=== PATIENT | male | born 1980 | race Caucasian/White ===

== ENCOUNTER 2019-04-18 11:16 | Emergency (ER) | payer SELFPAY | END 2019-04-18 11:43 | disposition left against medical advice (07) | DX: Z53.21 Procedure and treatment not carried out due to patient leaving prior to being seen by health care provider (principal) | CPT/HCPCS: 99199 ==

== ENCOUNTER 2019-04-18 13:02 | Emergency (ER) | payer OTHER, SELFPAY ==
[2019-04-18 13:18] VITALS: BP 136/88; PULSE 79; RESP 16; TEMP 36.6; O2SAT 99
--- NOTE | 2019-04-18 13:36 | ED.EAR ---
HPI - Ear Problem General Chief complaint: Ear Stated complaint: R/ear clogged Time Seen by Provider: 04/18/19 13:36 Source: patient and RN notes reviewed Mode of arrival: ambulatory Limitations: no limitations History of Present Illness HPI Narrative: This is a 38 years old male presented office for evaluation of right ear clogged since last night. He attempted to remove it himself with a Q-tip which he think it make it worse. He is otherwise feeling well, denies stuffy nose, cough, or difficulty breathing. Related Data Allergies Allergy/AdvReac Type Severity Reaction Status Date / Time morphine Allergy Intermediate Rash Unverified 07/23/18 10:32 Review of Systems Review of Systems: Narrative: CONSTITUTIONAL: Denies fever ENT: Denies rhinorrhea, congestion, sore throat or ears pain. Reprots can't hear from right ear CARDIOVASCULAR: Denies chest pain. RESPIRATORY: Denies dyspnea, wheezing, cough GASTROINTESTINAL: Denies abdominal pain, nausea, vomiting SKIN: Denies rash MUSCULOSKELETAL: Denies acute back pain NEUROLOGIC: Denies lightheaded PMFSH Social History Social History Alcohol intake: current Comments At time of signature, I agree with nursing past medical, surgical, social and family history. There is no relevant family history pertinent to the presenting complaint. Exam Narrative: Exam Narrative: GENERAL: This is a well-nourished, well-developed patient, in no apparent distress. EARS: External ears normal, auditory canals clear and without drainage, bilateral TMs noted cerumen impaction. Hearing grossly intact. CARDIOVASCULAR: Regular rate and rhythm without murmurs, gallops, or rubs. RESPIRATORY: Clear to auscultation. Breath sounds equal bilaterally. No wheezes, rales, or rhonchi. GASTROINTESTINAL: Abdomen soft, non-tender, nondistended. Bowel sounds are active. No hepato-splenomegaly, or palpable masses. No guarding. SKIN: warm, intact with no suspicious lesions or rash, good texture and turgor. NEURO: awake, alert, and oriented to person, place and time. There were no obvious focal neurologic abnormalities. Steady gait [place] Coma Scale Eye Opening: Spontaneous 4 Óscar Coma Scale Motor: Obeys Commands 6 Óscar Coma Scale Verbal: Oriented 5 Course Vital Signs Vital signs: Vital Signs Temperature 97.8 F 04/18/19 13:18 Pulse Rate 79 04/18/19 13:18 Respiratory Rate 16 04/18/19 13:18 Blood Pressure 136/88 04/18/19 13:18 Pulse Oximetry 99 04/18/19 13:18 Temperature 97.8 F 04/18/19 13:18 Pulse Rate 79 04/18/19 13:18 Respiratory Rate 16 04/18/19 13:18 Blood Pressure 136/88 04/18/19 13:18 Pulse Oximetry 99 04/18/19 13:18 Procedures Ear Wax Removal Both Ears: Ear Wax Removal Date: 04/18/19 Ear Wax Removal Time: 13:42 Results: Re-examined: cerumen removed completely TM Examination: TM(s) intact, normal appearance Ear Canal Exam: atraumatic Patient Tolerated Procedure: well Complications: no problems Technique: ear canal irrigated Medical Decision Making MDM Narrative Medical decision making narrative: Discharge instructions reviewed with patient, as well as provided in writing per nursing staff. The instructions also include specific and strict return/GO TO THE ER as well as f/u information. All questions have been answered, and the patient deny any further questions with discharge and discharge plan. Differential Diagnosis Differential Diagnosis: foreign body, otitis externa, otitis media Vital Signs Vital Signs: Vital Signs Temperature 97.8 F 04/18/19 13:18 Pulse Rate 79 04/18/19 13:18 Respiratory Rate 16 04/18/19 13:18 Blood Pressure 136/88 04/18/19 13:18 Pulse Oximetry 99 04/18/19 13:18 Temperature 97.8 F 04/18/19 13:18 Pulse Rate 79 04/18/19 13:18 Respiratory Rate 16 04/18/19 13:18 Blood Pressure 136/88 0
== END 2019-04-18 13:57 | disposition home or self-care (01) ==
PROVIDERS: Emergency Provider Nurse Practitioner
DX: H61.23 Impacted cerumen, bilateral (principal); K50.90 Crohn's disease, unspecified, without complications
CPT/HCPCS: 69209; 99212; G0463

== ENCOUNTER 2020-02-10 13:58 | Emergency (ER) | payer OTHER, SELFPAY ==
--- NOTE | ~2020-02-10 | CT_ITS ---
EXAMINATION: CT abdomen pelvis w con DATE: 02/10/2020 14:54 INDICATION: Left lower quadrant abdominal pain. Nausea and vomiting. TECHNIQUE: Computed tomography (CT) of the abdomen and pelvis was performed with 100 mL Omnipaque 350 intravenous contrast. Automated exposure control and iterative reconstruction technique were employe d. The dose-length product was 496.28 mGy-cm. COMPARISON: CT abdomen and pelvis 05/15/2013 FINDINGS: The visualized portions of the lung bases demonstrate minimal atelectasis. No pleural effus ion. The heart size is normal. No pericardial effusion. The liver, gallbladder, spleen, pancreas, adr enal glands, and right kidney are normal. There is a 12 mm cyst in left kidney. There is a 1 mm stone in left kidney. There is wall thickening of sigmoid colon with surrounding fat stranding centered at a diverticulum, consistent with diverticulitis. The appendix is normal. The terminal ileum is normal . There are no pathologically enlarged lymph nodes. There is no free intraperitoneal fluid. There is mild thoracolumbar spondylosis. IMPRESSION: 1. Acute sigmoid diverticulitis. No perforation or drainable abscess. Reviewed, dictated and finalized at location A. PRINTER
[2020-02-10 14:03] VITALS: BP 131/98; PULSE 107; RESP 16; TEMP 36.1; O2SAT 100
[2020-02-10 14:46] LABS: Basophils Percent Auto 0.2 % (0.2-1.2); Eosinophils Percent Auto 0.1 % (0-4.4); Hematocrit 50.4 % (42.0-52.0); Hemoglobin 17.5 g/dL (14.0-18.0); Immature Granulocyte Absolute 0.09 K/mm3 (0.00-0.031); Immature Granulocyte Percent A 0.5 % (0-0.5); Lymphocytes Absolute Auto 1.53 K/mm3 (0.9-3.2); Lymphocytes Percent Auto 9.1 % (18.3-44.2); Mean Corpuscular HGB Conc 34.7 g/dl (32-36); Mean Corpuscular Hemoglobin 30.9 pg (26-34); Monocytes Absolute Auto 0.9 K/mm3 (0.1-0.6); Monocytes Percent Auto 5.5 % (2.6-8.5); Neutrophils Absolute Auto 14.3 K/mm3 (1.3-6.7); Neutrophils Percent Auto 84.6 % (45.5-73.1); Platelet Count Result 301 k/mm3 (150-375); Red Blood Count 5.66 M/mm3 (4.6-6.20); Red Cell Distribution Width 13.7 % (11.5-14.5); White Blood Count 16.9 K/mm3 (4.5-10.0)
[2020-02-10 14:52] LABS: Estimated CRCL calculation 128 ml/min; Estimated Glomerular Filt Rate > 60
[2020-02-10 14:52] LABS: Add Urine Microscopic? YES; Appearance Urine Clear (Clear); Bilirubin Urine 1+ (Negative); Blood Urine 1+ (Negative); Color Urine Amber (Yellow); Glucose Urine UA Negative (Negative); Ketones Urine 2+ mg/dL (Negative); Leukocyte Esterase Ur Negative LEU/UL (Negative); Mucus Urine Heavy /lpf; Nitrate Urine Negative (Negative); Protein Urine 2+ mg/dL (Negative); WBC Urine 0-3 /hpf
[2020-02-10 14:57] LABS: Specific Grav Ur 1.034 (1.001-1.035)
[2020-02-10 15:01] LABS: Alanine Aminotransferase 43 U/L (4-50); Albumin Level 4.3 g/dL (3.5-5.1); Alkaline Phosphatase 141 U/L (38-126); Anion Gap 11 mmol/L (8-16); Aspartate Amino Transferase 35 U/L (17-59); Bilirubin,Total 1.2 mg/dL (0.2-1.3); Blood Urea Nitrogen 13 mg/dL (9-20); Calcium 9.4 mg/dL (8.4-10.2); Carbon Dioxide 28 mmol/L (22-30); Chloride 97 mmol/L (98-107); Estimated CRCL calculation 128 ml/min; Estimated Glomerular Filt Rate > 60; Glucose 123 mg/dL (75-110); Lipase 24 U/L (23-300); Potassium 3.3 mmol/L (3.4-5.0); Sodium 136 mmol/L (137-145)
[2020-02-10] MEDS: fentaNYL CITRATE INJ (*CRX) 100 MCG/2 ML VIAL 50 MCG IV PUSH (15:08)
[2020-02-10] MEDS: SODIUM CHLORIDE 0.9% IV 1,000 ML 999 ML IV CONT (15:09)
--- NOTE | 2020-02-10 15:49 | ED.ABDPAIN ---
HPI - Abdominal Pain General Chief Complaint: Abdominal Pain Stated Complaint: abd pain Time Seen by Provider: 02/10/20 13:59 History of Present Illness HPI narrative: Patient is a 39-year-old male who presents ER with lower abdominal pain. Ongoing for 2 to 3 days. Midline left lower quadrant. Associated with scant blood in stool. No diarrhea or fever. Has history of Crohn's disease and also history of diverticulitis. No fevers or chills or sweats. No aggravating or alleviating factors. Related Data Allergies Allergy/AdvReac Type Severity Reaction Status Date / Time morphine Allergy Intermediate Rash Verified 02/10/20 15:44 Review of Systems Review of Systems: All systems reviewed & are unremarkable except as noted in HPI and below Constitutional: Constitutional: Denies chills, Denies fever(s) and Denies weakness ENT: Denies nasal congestion and Denies sore throat Cardiovascular: Cardiovascular: Denies chest pain and Denies radiating jaw, neck or arm pain Gastrointestinal: Gastrointestinal: Reports abdominal pain, Denies diarrhea, Denies nausea and Denies vomiting PMFSH Past Medical History Medical History (Updated 02/10/20 @ 15:54 by Von Granados MD) Crohn's disease Diverticulitis Surgical History Surgical History (Updated 02/10/20 @ 15:51 by Von Granados MD) Hx of abdominal surgery Fistula repair Social History Social History (Updated 02/10/20 @ 15:52 by Von Granados MD) Smoking status: Current every day smoker Alcohol intake: current Exam Narrative: Exam Narrative: GENERAL: Well-appearing, well-nourished, and in no acute distress. HEAD: Normocephalic, atraumatic. CHEST: Clear to auscultation. No respiratory distress. HEART: Tachycardic and regular. Normal peripheral pulses. ABDOMEN: Soft, tender palpation left lower quadrant without guarding, nondistended. EXTREMITIES: Normal range of motion. No edema. SKIN: Warm, dry, no rash. NEURO: Alert and oriented x3. PSYCH: Normal mood and affect. Course Course Emergency Course: Patient informed of results. Discharge home. Vital Signs Vital signs: Vital Signs Temperature 97.0 F L 02/10/20 14:03 Pulse Rate 107 H 02/10/20 14:03 Respiratory Rate 16 02/10/20 14:03 Blood Pressure 131/98 H 02/10/20 14:03 Pulse Oximetry 100 02/10/20 14:03 Temperature 97.0 F L 02/10/20 14:03 Pulse Rate 107 H 02/10/20 14:03 Respiratory Rate 16 02/10/20 14:03 Blood Pressure 131/98 H 02/10/20 14:03 Pulse Oximetry 100 02/10/20 14:03 MDM - Abdominal Pain Lab Data Result diagrams: 02/10/20 14:37 02/10/20 14:49 Labs: Lab Results 02/10/20 02/10/20 02/10/20 Range/Units 14:37 14:37 14:37 WBC 16.9 H (4.5-10.0) K/mm3 RBC 5.66 (4.6-6.20) M/mm3 Hgb 17.5 (14.0-18.0) g/dL Hct 50.4 (42.0-52.0) % MCV 89.0 (80-100) fl MCH 30.9 (26-34) pg MCHC 34.7 (32-36) g/dl RDW 13.7 (11.5-14.5) % Plt Count 301 (150-375) k/mm3 MPV 10.0 (7.4-10.4) fl Immature Gran % (Auto) 0.5 (0-0.5) % Neut % (Auto) 84.6 H (45.5-73.1) % Lymph % (Auto) 9.1 L (18.3-44.2) % Dickenson % (Auto) 5.5 (2.6-8.5) % Eos % (Auto) 0.1 (0-4.4) % Baso % (Auto) 0.2 (0.2-1.2) % Lymph # (Auto) 1.53 (0.9-3.2) K/mm3 Dickenson # (Auto) 0.9 H (0.1-0.6) K/mm3 Eos # (Auto) 0.0 (0-0.3) K/mm3 Baso # (Auto) 0.0 (0.0-0.1) K/mm3 Abs Immat Gran (auto) 0.09 H (0.00-0.031) K/mm3 Absolute Neuts (auto) 14.3 H (1.3-6.7) K/mm3 Absolute Nucleated RBC 0.0 (0.0-0.012) K/mm3 Nucleated RBC % 0.0 (0.0-0.2) % Sodium 136 L (137-145) mmol/L Potassium 3.3 L (3.4-5.0) mmol/L Chloride 97 L (98-107) mmol/L Carbon Dioxide 28 (22-30) mmol/L Anion Gap 11 (8-16) mmol/L BUN 13 (9-20) mg/dL Creatinine 0.80 (0.7-1.3) mg/dL Estim Creat Clear Calc 128 ml/min Estimated GFR > 60 (59 - ) Glucose 123 H (75-110) mg/dL C
[2020-02-10] MEDS: ONDANSETRON INJ 4 MG/2 ML VIAL (16:16)
--- NOTE | 2020-02-10 16:16 | PC.NURSE ---
eze zofran [address] mittal
[2020-02-10 16:18] VITALS: BP 142/78; PULSE 84; RESP 16; O2SAT 99
== END 2020-02-10 16:52 | disposition home or self-care (01) ==
PROVIDERS: Emergency Provider Emergency Medicine
DX: K57.32 Diverticulitis of large intestine without perforation or abscess without bleeding (principal); K50.90 Crohn's disease, unspecified, without complications; F17.200 Nicotine dependence, unspecified, uncomplicated
CPT/HCPCS: 36415; 74177; 80053; 81001; 83690; 85025; 96361; 96374; 96375; 99284; J2405; J3010; J7030; Q9967

== ENCOUNTER 2020-03-13 10:28 | Emergency (ER) | payer OTHER, SELFPAY ==
--- NOTE | 2020-03-13 10:32 | ED.SKABFB ---
HPI - Skin/Abscess/Foreign Bdy General Chief complaint: Extremity Injury, Lower Stated complaint: Blister on foot Time Seen by Provider: 03/13/20 10:42 Source: patient and RN notes reviewed Mode of arrival: ambulatory Limitations: no limitations History of Present Illness HPI narrative: 39-year-old male presents concern for a blister on his right foot with surrounding redness and pain, reports symptoms started last night. Denies any injury, trauma to the foot. Denies any streaking, fever, malaise. MD complaint: other (Foot pain) Related Data Allergies Allergy/AdvReac Type Severity Reaction Status Date / Time morphine Allergy Intermediate Rash Verified 03/13/20 10:36 Review of Systems Review of Systems: Narrative: CONSTITUTIONAL: Denies malaise, chills, sweats, or fever. CARDIOVASCULAR: Denies chest pain, palpitations, or edema. RESPIRATORY: Denies cough or dyspnea. SKIN: Reports blister area between fourth and fifth digits of the right foot with surrounding redness, tenderness MUSCULOSKELETAL: Denies muscle skeletal pain myalgia. NEUROLOGIC: Denies numbness, weakness All systems reviewed & are unremarkable except as noted in HPI and below PMFSH Past Medical History Medical History (Updated 03/13/20 @ 10:49 by Ingrid Vazquez NP) Crohn's disease Diverticulitis Surgical History Surgical History (Updated 02/10/20 @ 15:51 by Von Granados MD) Hx of abdominal surgery Fistula repair Social History Social History (Updated 02/10/20 @ 15:52 by Von Granados MD) Smoking status: Current every day smoker Alcohol intake: current Gender identity (if verbalized by the patient): Male Comments At time of signature, agree with nursing past medical, surgical, social and family history. There is no relevant family history pertinent to the presenting complaint Exam Narrative: Exam Narrative: GENERAL: Well-appearing, well-nourished, and in no acute distress. HEAD: Normocephalic, atraumatic. EYES: PERRLA, conjunctivae clear NECK: Supple. CHEST: Speaks in full sentences. No respiratory distress. HEART: Regular rate and rhythm. Normal and equal peripheral pulses. EXTREMITIES: Right foot and digits have normal strength and sensation, normal range of motion. No edema or ecchymosis. 5/5 strength with ankle and digit flexion and extension. Normal sensation with sensitivity to light touch and pain. No point tenderness. No skin tenting, no devitalized tissue or atrophy, no trophic changes, no obvious deformity, alignment normal, nearby joints and structures intact. Distal pulses palpable and equal bilaterally, skin warm, dry, pink. Capillary refill less than 3 seconds. SKIN: Warm, dry. 1 cm diameter area of redness, mild elevation, tenderness noted between digits 4 and 5 surrounded by 5 cm of erythema and warmth to the dorsal aspect of the foot beneath digits 4 and 5 NEURO: Alert and oriented x3. PSYCH: Normal mood and affect Course Course Emergency Course: Patient is aware of diagnosis, understands and agrees to treatment plan. Anticipatory guidance given. Patient agrees to follow-up as directed and is aware of reasons to seek care at the emergency department. Portions of this record may have been created with voice recognition software Vital Signs Vital signs: Vital Signs Temperature 96.3 F L 03/13/20 10:42 Pulse Rate 92 03/13/20 10:42 Respiratory Rate 16 03/13/20 10:42 Blood Pressure 147/94 H 03/13/20 10:42 Pulse Oximetry 100 03/13/20 10:42 Temperature 96.3 F L 03/13/20 10:42 Pulse Rate 92 03/13/20 10:42 Respiratory Rate 16 03/13/20 10:42 Blood Pressure 147/94 H 03/13/20 10:42 Pulse Oximetry 100 03/13/20 10:42 Reviewed. MDM - Skin/Abscess/Foreign Bdy MDM Narrative Medical decision making narrative: Exam findings show no acute concerns or changes; patient is non-toxic appearing and is in no distress. Patient is appropriate for outpatient treatment and follow-up. Differential D
[2020-03-13 10:42] VITALS: BP 147/94; PULSE 92; RESP 16; TEMP 35.7; O2SAT 100
== END 2020-03-13 10:55 | disposition home or self-care (01) ==
PROVIDERS: Emergency Provider Nurse Practitioner
DX: L03.115 Cellulitis of right lower limb (principal); K50.90 Crohn's disease, unspecified, without complications
CPT/HCPCS: 99213; G0463

== ENCOUNTER 2020-03-15 08:01 | Emergency (ER) | payer OTHER, SELFPAY ==
--- NOTE | 2020-03-15 08:09 | ED.GENADULT ---
HPI - General Adult General Chief complaint: Wound/Laceration Stated complaint: CELLULITIS R FOOT Time Seen by Provider: 03/15/20 08:06 Source: patient Mode of arrival: ambulatory Limitations: no limitations History of Present Illness HPI narrative: A 39-year-old male comes into the emergency department today with complaints of right foot pain. Patient states that he was seen at an urgent care was diagnosed with cellulitis of the foot and was discharged home with prescription for cephalexin. Patient states that he has been a day or so and that the redness seems to be getting better and the pain is increasing. Patient does endorse a small amount of purulent drainage coming from the wound. He denies any fevers or chills or any pain or symptoms elsewhere. Patient states that he is not a diabetic. Related Data Allergies Allergy/AdvReac Type Severity Reaction Status Date / Time morphine Allergy Intermediate Rash Verified 03/13/20 10:36 Review of Systems Review of Systems: Narrative: CONSTITUTIONAL: Denies fever, chills, or sweats. EYES: Denies visual changes, redness, or discharge. ENT: Denies rhinorrhea, congestion, sore throat, or otalgia. CARDIOVASCULAR: Denies chest pain, palpitations, or edema. RESPIRATORY: Denies cough or dyspnea. GASTROINTESTINAL: Denies abdominal pain, nausea, vomiting, or diarrhea. GENITOURINARY: Denies dysuria or hematuria. SKIN: Denies rash or itching. MUSCULOSKELETAL: Denies back pain, joint pain, or myalgia. Pain in the right foot NEUROLOGIC: Denies headache, numbness, dizziness, or weakness. PSYCHIATRIC: Denies anxiety or depression. [facility] Past Medical History Medical History Crohn's disease Diverticulitis Surgical History Surgical History Hx of abdominal surgery Fistula repair Social History Social History Smoking status: Current every day smoker Alcohol intake: current Gender identity (if verbalized by the patient): Male Exam Narrative: Exam Narrative: My GENERAL: Well-appearing, well-nourished, and in no acute distress. HEAD: Normocephalic, atraumatic. EYES: PERRLA and EOMI. ENT: Nares clear, no rhinorrhea or epistaxis. Mucous membranes moist. Oropharynx without tonsillar hypertrophy exudate or other lesions. Bilateral TMs pearly desai nonbulging NECK: Supple. No adenopathy or masses. No carotid bruits or JVD CHEST: Clear to auscultation. No respiratory distress. No wheezes rales or rhonchi HEART: Regular rate and rhythm. No murmur heard. Normal peripheral pulses. ABDOMEN: Soft, nontender, nondistended, normal active bowel sounds. EXTREMITIES: Normal range of motion. No edema. Erythema and tenderness in the right foot particularly at the fourth and fifth metatarsal phalangeal joints. SKIN: Warm, dry, no rash. NEURO: No focal deficits. Alert and oriented x3. PSYCH: Normal mood and affect. Course Reevaluation(s) Reevaluation #1: Patient was feeling somewhat better. He was given [place] for pain and had Bactrim added onto his regimen. Explained to the patient that this will be his plan for discharge. He is recommended to follow-up with primary care physician. Time: 09:52 Vital Signs Vital signs: Vital Signs Temperature 36.3 C L 03/15/20 08:13 Pulse Rate 82 03/15/20 08:13 Respiratory Rate 18 03/15/20 08:13 Blood Pressure 151/92 H 03/15/20 08:13 Pulse Oximetry 100 03/15/20 08:13 Temperature 36.3 C L 03/15/20 08:13 Pulse Rate 82 03/15/20 08:13 Respiratory Rate 18 03/15/20 08:13 Blood Pressure 151/92 H 03/15/20 08:13 Pulse Oximetry 100 03/15/20 08:13 Medical Decision Making MDM Narrative Medical decision making narrative: In brief this 39-year-old male, nondiabetic, presented to the emergency department with complaints of pain in his right foot. The foot was examined by myself. I terrie
[2020-03-15 08:13] VITALS: BP 151/92; PULSE 82; RESP 18; TEMP 36.3; O2SAT 100
[2020-03-15] MEDS: HYDROcodone/acetaminophen (*CRX) 5-325 MG TABLET 1 TAB PO (08:31)
[2020-03-15 08:34] LABS: Add Urine Microscopic? NO; Appearance Urine Clear (Clear); Bilirubin Urine Negative (Negative); Blood Urine Negative (Negative); Color Urine Yellow (Yellow); Glucose Urine UA Negative (Negative); Ketones Urine Negative (Negative); Leukocyte Esterase Ur Negative LEU/UL (Negative); Nitrate Urine Negative (Negative); Protein Urine Negative (Negative); Specific Grav Ur 1.015 (1.001-1.035); Urobilinogen Urine Negative mg/dL (<2.0)
[2020-03-15 08:47] LABS: Alanine Aminotransferase 19 U/L (4-50); Albumin Level 4.1 g/dL (3.5-5.1); Alkaline Phosphatase 78 U/L (38-126); Anion Gap 10 mmol/L (8-16); Aspartate Amino Transferase 27 U/L (17-59); Bilirubin,Total 0.5 mg/dL (0.2-1.3); Blood Urea Nitrogen 10 mg/dL (9-20); Calcium 9.1 mg/dL (8.4-10.2); Carbon Dioxide 22 mmol/L (22-30); Chloride 110 mmol/L (98-107); Estimated CRCL calculation 131 ml/min; Estimated Glomerular Filt Rate > 60; Glucose 101 mg/dL (75-110); Potassium 4.1 mmol/L (3.4-5.0); Sodium 142 mmol/L (137-145)
[2020-03-15 08:55] LABS: Basophils Absolute Auto 0.1 K/mm3 (0.0-0.1); Basophils Percent Auto 0.9 % (0.2-1.2); Eosinophils Absolute Auto 0.4 K/mm3 (0-0.3); Eosinophils Percent Auto 4.5 % (0-4.4); Hematocrit 48.3 % (42.0-52.0); Hemoglobin 15.8 g/dL (14.0-18.0); Immature Granulocyte Absolute 0.03 K/mm3 (0.00-0.031); Immature Granulocyte Percent A 0.3 % (0-0.5); Lymphocytes Absolute Auto 2.62 K/mm3 (0.9-3.2); Lymphocytes Percent Auto 28.4 % (18.3-44.2); Mean Corpuscular HGB Conc 32.7 g/dl (32-36); Mean Corpuscular Volume 94.7 fl (80-100); Mean Platelet Volume 9.4 fl (7.4-10.4); Monocytes Absolute Auto 0.5 K/mm3 (0.1-0.6); Monocytes Percent Auto 5.4 % (2.6-8.5); Neutrophils Absolute Auto 5.6 K/mm3 (1.3-6.7); Neutrophils Percent Auto 60.5 % (45.5-73.1); Platelet Count Result 315 k/mm3 (150-375); Red Cell Distribution Width 14.5 % (11.5-14.5); White Blood Count 9.2 K/mm3 (4.5-10.0)
== END 2020-03-15 10:52 | disposition home or self-care (01) ==
PROVIDERS: Emergency Provider Emergency Medicine; Family Provider Internal Medicine
DX: L03.115 Cellulitis of right lower limb (principal); K50.90 Crohn's disease, unspecified, without complications; F17.200 Nicotine dependence, unspecified, uncomplicated
CPT/HCPCS: 36415; 80053; 81003; 85025; 99283; A9270

== ENCOUNTER 2021-04-12 07:03 | Emergency (ER) | payer OTHER, SELFPAY ==
[2021-04-12 07:10] VITALS: BP 150/99; PULSE 91; RESP 16; TEMP 36.2; O2SAT 100
--- NOTE | 2021-04-12 07:17 | ED.GENADULT ---
HPI - General Adult General Chief complaint: Wound/Laceration Stated complaint: left side of face is swollen Time Seen by Provider: 04/12/21 07:09 Source: RN notes reviewed History of Present Illness HPI narrative: Patient presents emergency department from home for left sided lower lip swelling. Patient states that yesterday he had a pimple in this area that he popped he states that then throughout the rest of the evening and today has had increased swelling and pain in the left lower lip he states that he has had no more active drainage from the wound states area is tender to palpation with redness denies any fevers or chills swelling of the tongue shortness of breath or any other symptoms Related Data Allergies Allergy/AdvReac Type Severity Reaction Status Date / Time morphine Allergy Intermediate Rash Verified 04/12/21 07:22 Review of Systems Review of Systems: Gen.: Denies fevers or chills ENT: Denies congestion Respiratory: Denies shortness of breath or cough CV: Denies chest pain GI: Denies abdominal pain nausea, emesis Musculoskeletal: Denies neck pain Neuro: Denies headache Skin: See HPI Except as documented, all other systems reviewed and negative PMFSH Past Medical History Medical History Crohn's disease Diverticulitis Surgical History Surgical History Hx of abdominal surgery Fistula repair Social History Social History Smoking status: Current every day smoker Alcohol intake: current Gender identity (if verbalized by the patient): Male Exam Narrative: APPEARANCE: No acute distress, nontoxic, resting in bed EYES: EOMI HEENT: Normocephalic, atraumatic, nares patent, mucosa moist airway patent tolerating own secretions uvula midline, there is no swelling of the upper lip the left lower lip swelling that does not cross the midline Lateral cheek there is mild overlying erythema and mild fluctuance RESPIRATORY: No respiratory distress MUSCULOSKELETAl: Moves all extremities. NEURO: Awake and alert. Following commands, speech normal, no focal deficits SKIN:: Warm, dry. RN edema and swelling of left lower lip PSYCHIATRIC: Normal affect/mood, Course Course Emergency Course: Discussed Dr. Manzano presentation work-up agrees with plan for follow-up as outpatient request patient started on clindamycin Discussed with patient results of workup and diagnosis. Discussed need for follow-up with primary care, proper use of medication, and reasons to return to the emergency department. Patient understands and agrees to current treatment plan Vital Signs Vital signs: Vital Signs Temperature 97.1 F L 04/12/21 07:10 Pulse Rate 91 04/12/21 07:10 Respiratory Rate 16 04/12/21 07:10 Blood Pressure 150/99 H 04/12/21 07:10 Pulse Oximetry 100 04/12/21 07:10 Temperature 97.1 F L 04/12/21 07:10 Pulse Rate 91 04/12/21 07:10 Respiratory Rate 16 04/12/21 07:10 Blood Pressure 150/99 H 04/12/21 07:10 Pulse Oximetry 100 04/12/21 07:10 Procedures Abscess I/D face: Abcess I&D Additional Comments: Verbal consent was obtained prior to procedure. Scab over the left lower lip was removed using forceps at that time express approximately 1 cc of purulent material from the wound was sent for culture following this dressing was placed patient tolerated procedure well Medical Decision Making Vital Signs Vital Signs: Vital Signs Temperature 97.1 F L 04/12/21 07:10 Pulse Rate 91 04/12/21 07:10 Respiratory Rate 16 04/12/21 07:10 Blood Pressure 150/99 H 04/12/21 07:10 Pulse Oximetry 100 04/12/21 07:10 Temperature 97.1 F L 04/12/21 07:10 Pulse Rate 91 04/12/21 07:10 Respiratory Rate 16 04/12/21 07:10 Blood Pressure 150/99 H 04/12/21 07:10 Pulse Oximetry 100 04/12/21 07:10 Discharge Plan Disch
[2021-04-12] MEDS: CLINDAMYCIN HCL 150 MG CAP 300 MG PO (07:43)
[2021-04-12 08:30] VITALS: BP 148/104; PULSE 72; RESP 16; O2SAT 98
== END 2021-04-12 08:30 | disposition home or self-care (01) ==
PROVIDERS: Emergency Provider Emergency Medicine
DX: L02.01 Cutaneous abscess of face (principal); K50.90 Crohn's disease, unspecified, without complications; F17.210 Nicotine dependence, cigarettes, uncomplicated
CPT/HCPCS: 87070; 87075; 87147; 87186; 87205; 99283; A9270

== ENCOUNTER 2021-05-23 11:32 | Emergency (ER) | payer OTHER, SELFPAY ==
--- NOTE | 2021-05-23 11:39 | ED.ABDPAIN ---
HPI - Abdominal Pain General Chief Complaint: Abdominal Pain Stated Complaint: abd pain Time Seen by Provider: 05/23/21 11:45 Source: patient, RN notes reviewed and old records reviewed Mode of arrival: ambulatory Limitations: no limitations History of Present Illness HPI narrative: 40-year-old male presents to the [facility] with complaints of left-sided abdominal pain that feels very similar to his outbreak of diverticulitis a couple of years ago. Had a bowel movement prior to arrival. No nausea or vomiting. States that he wants to follow-up with a GI doctor but will not have a insurance for 2 more months. States his flareup started 2 days ago and he started drinking clear fluids. Denies any chest pain or shortness of breath. No fevers. Patient appears nontoxic. MD elicited complaint: abdominal pain Related Data Allergies Allergy/AdvReac Type Severity Reaction Status Date / Time morphine Allergy Intermediate Rash Verified 04/12/21 07:22 Review of Systems Review of Systems: All systems reviewed & are unremarkable except as noted in HPI and below Constitutional: Constitutional: Reports no additional constitutional complaints, Denies body ache(s), Denies chills and Denies fever(s) Eyes: Eyes: Reports no additional eye complaints ENT: Reports system reviewed and no additional complaints, except as documented Cardiovascular: Cardiovascular: Reports no additional cardiovascular complaints, Denies chest pain and Denies dyspnea Respiratory: Respiratory: Reports no additional respiratory complaints, Denies cough and Denies dyspnea Gastrointestinal: Gastrointestinal: Reports as per HPI, Reports abdominal pain (Left sided, left lower), Denies bloating, Denies constipation, Denies diarrhea, Denies nausea and Denies vomiting Genitourinary: Genitourinary: Reports no additional male genitourinary complaints, Denies hematuria, Denies oliguria, Denies dysuria, Denies testicular pain, Denies urinary frequency and Denies urinary incontinence Musculoskeletal: Musculoskeletal: Reports no additional musculoskeletal complaints Integumentary/Breasts: Skin/Breast: Reports system reviewed and no additional complaints, except as docu Neurologic: Reports system reviewed and no additional complaints, except as documented Psychiatric: Psychiatric: Reports no additional psychiatric complaints Allergic/Immunologic: Allergic/Immunologic: Reports no additional allergic/immunologic complaints PMFSH Past Medical History Medical History Crohn's disease Diverticulitis Surgical History Surgical History Hx of abdominal surgery Fistula repair Social History Social History Smoking status: Current every day smoker Alcohol intake: current Gender identity (if verbalized by the patient): Male Comments At the time of my signature, I reviewed and agree with the nursing past medical, surgical, social, and family history. There is no relevant family history pertinent to the patient complaint. Exam Const: General: cooperative, healthy appearing, comfortable, no acute distress, well developed and alert Nutritional Appearance: well nourished Orientation/consciousness: patient oriented x3 Limitations: no limitations HENMT: Head: normal to inspection Ears: external ears normal Eyes: Pupils: Equal, round and reactive pupils present Neck: Neck: normal visual inspection, no lymphadenopathy and no meningeal signs Chest: Chest palpation & inspection: normal inspection of the chest Resp: Effort & Inspection: normal respiratory effort, able to speak in complete sentences and no use of accessory muscles Auscultation: clear to auscultation bilaterally Cardio: Rate: regular rate Rhythm: regular rhythm GI: GI Palp: Yes Soft to palpation, Yes Tenderness to palpation present (GI) (Left lower
[2021-05-23 11:45] VITALS: BP 146/97; PULSE 75; RESP 20; TEMP 36.3; O2SAT 100
== END 2021-05-23 12:07 | disposition home or self-care (01) ==
PROVIDERS: Emergency Provider Nurse Practitioner
DX: K57.92 Diverticulitis of intestine, part unspecified, without perforation or abscess without bleeding (principal); F17.200 Nicotine dependence, unspecified, uncomplicated; K50.90 Crohn's disease, unspecified, without complications
CPT/HCPCS: 99213; G0463

== ENCOUNTER 2021-06-20 06:56 | Emergency (ER) | payer OTHER, SELFPAY ==
[2021-06-20 07:00] VITALS: BP 140/102; PULSE 102; RESP 16; TEMP 36.9; O2SAT 98
--- NOTE | 2021-06-20 07:17 | ED.GENADULT ---
HPI - General Adult General Chief complaint: Skin/Abscess/Foreign Body Stated complaint: pimple on my buttcheek Time Seen by Provider: 06/20/21 06:59 Source: patient, RN notes reviewed and old records reviewed Limitations: no limitations History of Present Illness HPI narrative: 40-year-old male with history of previous abscesses and history of Crohn's/diverticulitis presenting to the emergency department for evaluation of an abscess on his left buttock. Patient states it started as a pimple approximately 2 weeks ago. Patient states that it has been draining spontaneously. Patient presented to the emergency department today for evaluation due to worsening pain. Patient states pain is worsened when sitting. Does have a prior history of a facial abscess and of a perirectal abscess. Patient denies any prior history of diabetes. Related Data Allergies Allergy/AdvReac Type Severity Reaction Status Date / Time morphine Allergy Intermediate Rash Verified 06/20/21 07:03 Review of Systems Review of Systems: CONSTITUTIONAL: Denies fever, chills, or sweats. EYES: Denies visual changes, redness, or discharge. ENT: Denies rhinorrhea, congestion, sore throat, or otalgia. CARDIOVASCULAR: Denies chest pain, palpitations, or edema. RESPIRATORY: Denies cough or dyspnea. GASTROINTESTINAL: Denies abdominal pain, nausea, vomiting, or diarrhea. GENITOURINARY: Denies dysuria or hematuria. SKIN: See HPI MUSCULOSKELETAL: Denies back pain, joint pain, or myalgia. NEUROLOGIC: Denies headache, numbness, or weakness. PSYCHIATRIC: Denies anxiety or depression. [facility] Past Medical History Medical History Crohn's disease Diverticulitis Surgical History Surgical History Hx of abdominal surgery Fistula repair Social History Social History Smoking status: Current every day smoker Alcohol intake: current Gender identity (if verbalized by the patient): Male Exam Narrative: APPEARANCE: Well appearing, no pain, no distress, well-nourished. HEAD: normocephalic, atraumatic. NECK: Supple. No adenopathy, no masses. RESPIRATORY: Airway patent, respirations nonlabored. Clear to auscultation bilaterally, no rales, rhonchi, wheezing. CARDIOVASCULAR: Regular rate and rhythm without murmurs rubs or gallops. ABDOMINAL: Soft, nontender, nondistended, normal bowel sounds NEURO: Alert. Cranial nerves II through XII intact. Good gait. Good coordination SKIN: 2 cm area of erythema on left buttock, not perirectal. Draining spontaneously, no fluctuance. Course Course Emergency Course: Abscess is not currently amenable to drainage. Patient will be started on clindamycin. Patient was also encouraged to have close follow-up with his primary care physician. Reasons to return to the emergency department were discussed with the patient. All questions concerns were addressed. Vital Signs Vital signs: Vital Signs Temperature 98.4 F 06/20/21 07:00 Pulse Rate 102 H 06/20/21 07:00 Respiratory Rate 16 06/20/21 07:00 Blood Pressure 140/102 H 06/20/21 07:00 Pulse Oximetry 98 06/20/21 07:00 Temperature 98.4 F 06/20/21 07:00 Pulse Rate 102 H 06/20/21 07:00 Respiratory Rate 16 06/20/21 07:00 Blood Pressure 140/102 H 06/20/21 07:00 Pulse Oximetry 98 06/20/21 07:00 Medical Decision Making Vital Signs Vital Signs: Vital Signs Temperature 98.4 F 06/20/21 07:00 Pulse Rate 102 H 06/20/21 07:00 Respiratory Rate 16 06/20/21 07:00 Blood Pressure 140/102 H 06/20/21 07:00 Pulse Oximetry 98 06/20/21 07:00 Temperature 98.4 F 06/20/21 07:00 Pulse Rate 102 H 06/20/21 07:00 Respiratory Rate 16 06/20/21 07:00 Blood Pressure 140/102 H 06/20/21 07:00 Pulse Oximetry 98 06/20/21 07:00 Discharge Plan Discharge Clinical Impression: Abscess of skin or
[2021-06-20] MEDS: CLINDAMYCIN HCL 150 MG CAP 300 MG PO (07:21)
== END 2021-06-20 07:45 | disposition home or self-care (01) ==
LOC: ANHED 07:35
PROVIDERS: Emergency Provider Emergency Medicine
DX: L02.31 Cutaneous abscess of buttock (principal); K50.90 Crohn's disease, unspecified, without complications; F17.200 Nicotine dependence, unspecified, uncomplicated
CPT/HCPCS: 99283; A9270

== ENCOUNTER 2021-06-22 08:14 | Emergency (ER) | payer OTHER, SELFPAY ==
[2021-06-22 08:21] VITALS: BP 153/98; PULSE 93; TEMP 36.4; O2SAT 100
--- NOTE | 2021-06-22 08:25 | ED.WOUNDLAC ---
HPI - Wound/Laceration General Chief Complaint: Wound/Laceration Stated Complaint: Sore on [place] Time Seen by Provider: 06/22/21 08:25 Source: patient Mode of arrival: ambulatory Limitations: no limitations History of Present Illness HPI narrative: 40-year-old male presents with pain buttock. Was seen in the ER several days ago for left buttock abscess. Was not I&D at that time. Patient has been taking clindamycin daily. States the abscess opened up on its own and is draining. Reports that pain is worse than it ever has been. Want someone to look at it to make sure that it is okay. Afebrile. Ambulatory with steady gait. All systems reviewed and negative except as noted above. Related Data Allergies Allergy/AdvReac Type Severity Reaction Status Date / Time morphine Allergy Intermediate Rash Verified 06/22/21 08:18 Review of Systems Review of Systems: CONSTITUTIONAL: Denies fever, chills, or sweats. EYES: Denies visual changes, redness, or discharge. ENT: Denies rhinorrhea, congestion, sore throat, or otalgia. CARDIOVASCULAR: Denies chest pain, palpitations, or edema. RESPIRATORY: Denies cough or dyspnea. GASTROINTESTINAL: Denies abdominal pain, nausea, vomiting, or diarrhea. GENITOURINARY: Denies dysuria or hematuria. SKIN: Denies rash or itching. Reports draining abscess to left buttock. MUSCULOSKELETAL: Denies back pain, joint pain, or myalgia. NEUROLOGIC: Denies headache, numbness, or weakness. PSYCHIATRIC: Denies anxiety or depression. All other systems reviewed are negative, except as documented in HPI. PMFSH Past Medical History Medical History Crohn's disease Diverticulitis Surgical History Surgical History Hx of abdominal surgery Fistula repair Social History Social History Smoking status: Current every day smoker Alcohol intake: current Gender identity (if verbalized by the patient): Male Comments At time of signature, agree with nursing past medical, surgical, social and family history. There is no relevant family history pertinent to the presenting complaint. Exam Narrative: GENERAL: This is a well-nourished, well-developed patient, in no apparent distress. HEAD: normocephalic, atraumatic. EYES: PERRL. Sclera clear/white. Vision is grossly intact. EARS: External ears normal NOSE: External nose normal NECK: Neck supple, non-tender without lymphadenopathy, masses or thyromegaly. CARDIOVASCULAR: Regular rate and rhythm without murmurs, gallops, or rubs. RESPIRATORY: Clear to auscultation. Breath sounds equal bilaterally. No wheezes, rales, or rhonchi. SKIN: warm, Dry, intact with no suspicious lesions or rash, good texture and turgor. Draining abscess noted to left buttock with erythema and tenderness on palpation. Only a small amount of drainage noted. Induration is approximately 8 cm x 6 cm. NEURO: awake, alert, and oriented to person, place and time. There were no obvious focal neurologic abnormalities. EXTREMITIES: Normal range of motion to all extremities. Course Course Level of Care: Express Care Visit Vital Signs Vital signs: Vital Signs Temperature 36.4 C 06/22/21 08:21 Pulse Rate 93 06/22/21 08:21 Blood Pressure 153/98 H 06/22/21 08:21 Pulse Oximetry 100 06/22/21 08:21 Temperature 36.4 C 06/22/21 08:21 Pulse Rate 93 06/22/21 08:21 Blood Pressure 153/98 H 06/22/21 08:21 Pulse Oximetry 100 06/22/21 08:21 Reviewed Procedures Abscess I/D other: Date of Incision: 06/22/21 Time of Incision: 09:05 Side (if applicable): left Local Anesthetic: lidocaine 2% Amount of anesthesia used (mL): 4 Technique: incised with #11 blade Irrigation: No Packing used?: plain I&D Results: Pus and Blood Abcess I&D Additional Comments: Frank
== END 2021-06-22 09:00 | disposition home or self-care (01) ==
PROVIDERS: Emergency Provider Nurse Practitioner Family
DX: L02.31 Cutaneous abscess of buttock (principal); F17.200 Nicotine dependence, unspecified, uncomplicated
CPT/HCPCS: 10060; 99213; G0463

== ENCOUNTER 2022-08-06 17:30 | Emergency (ER) | payer SELFPAY ==
[2022-08-06 18:17] VITALS: BP 153/103; PULSE 84; RESP 14; TEMP 37.2; O2SAT 98
--- NOTE | 2022-08-06 18:50 | ED.EAR ---
HPI - Ear Problem General Chief complaint: Ear Stated complaint: Right Ear Irritation Time Seen by Provider: 08/06/22 18:50 Source: patient Mode of arrival: ambulatory Limitations: no limitations History of Present Illness HPI Narrative: 41-year-old male presented for complaint of right ear pain and decreased hearing today. He states while he was in the shower a warm water got into the ear and cause the symptoms. Endorses associated headache. Denies tinnitus, dizziness, nausea vomiting, fevers or chills. History of cerumen impaction. MD Complaint: ear pain Related Data Home Medications Medication Instructions Recorded Confirmed No Home Medications 08/06/22 08/06/22 Allergies Allergy/AdvReac Type Severity Reaction Status Date / Time morphine Allergy Intermediate Rash Verified 08/06/22 18:31 Review of Systems Review of Systems: CONSTITUTIONAL: Denies malaise, chills, or fever. EYES: Denies visual changes, redness, or discharge. ENT: Denies rhinorrhea, congestion, sinus pain, and sore throat. Reports ear pain CARDIOVASCULAR: Denies chest pain, palpitations, or edema. RESPIRATORY: Denies cough or dyspnea. GASTROINTESTINAL: Denies abdominal pain, nausea, vomiting, diarrhea SKIN: Denies rash or itching. MUSCULOSKELETAL: Denies myalgia. NEUROLOGIC: Denies headache. All systems reviewed & are unremarkable except as noted in HPI and below PMFSH Past Medical History Medical History Crohn's disease Diverticulitis Surgical History Surgical History Hx of abdominal surgery Fistula repair Social History Social History Smoking status: Current every day smoker Alcohol intake: current Gender identity (if verbalized by the patient): Male Comments At time of signature, agree with nursing past medical, surgical, social and family history. There is no relevant family history pertinent to the presenting complaint Exam Narrative: GENERAL: Well-appearing, and in no acute distress. EYES: PERRLA, conjunctivae clear ENT: Nares clear. Mucous membranes moist. Left TM pearly desai with dull light reflex; right TM unable to visualize due to cerumen impaction. no tragal tenderness. Oropharynx not erythematous without lesions. Tonsils not enlarged and without exudate, no drooling, no hoarseness, no trismus, uvula midline. NECK: Supple. No lymphadenopathy CHEST: Unlabored, No respiratory distress, speaks in full sentences. HEART: Regular rate and rhythm. No murmur heard. SKIN: Warm, dry, no rash. NEURO: Alert and oriented x3. PSYCH: Normal mood and affect Course Course Emergency Course: Patient is aware of diagnosis, understands and agrees to treatment plan. Anticipatory guidance given. Patient agrees to follow-up as directed and is aware of reasons to seek care at the emergency department. Portions of this record may have been created with voice recognition software Level of Care: Express Care Visit Vital Signs Vital signs: Vital Signs Temperature 98.9 F 08/06/22 18:17 Pulse Rate 84 08/06/22 18:17 Respiratory Rate 14 08/06/22 18:17 Blood Pressure 153/103 H 08/06/22 18:17 Pulse Oximetry 98 08/06/22 18:17 Oxygen Delivery Room Air 08/06/22 18:17 Temperature 98.9 F 08/06/22 18:17 Pulse Rate 84 08/06/22 18:17 Respiratory Rate 14 08/06/22 18:17 Blood Pressure 153/103 H 08/06/22 18:17 Pulse Oximetry 98 08/06/22 18:17 Oxygen Delivery Room Air 08/06/22 18:17 Reviewed Procedures Ear Wax Removal Right Ear: Ear Wax Removal Date: 08/06/22 Cerumenolytic Used: other (Hydrogen peroxide and warm water) Results: Re-examined: cerumen removed completely TM Examination: TM(s) intact, normal appearance Ear Canal Exam: atraumatic Patient Tolerated Procedure: well and no
== END 2022-08-06 19:15 | disposition home or self-care (01) ==
PROVIDERS: Emergency Provider Nurse Practitioner Family
DX: H61.21 Impacted cerumen, right ear (principal); F17.200 Nicotine dependence, unspecified, uncomplicated; K50.90 Crohn's disease, unspecified, without complications
CPT/HCPCS: 69210; 99212; G0463

== ENCOUNTER 2023-02-22 00:38 | Emergency (ER) | payer SELFPAY ==
[2023-02-22 00:41] VITALS: BP 149/98; PULSE 74; RESP 20; TEMP 36.8; O2SAT 100
== END 2023-02-22 03:12 | disposition left against medical advice (07) ==
LOC: ANHED 00:53
DX: R10.32 Left lower quadrant pain (principal)
CPT/HCPCS: 99199

== ENCOUNTER 2023-06-28 10:16 | Emergency (ER) | payer OTHER, SELFPAY ==
[2023-06-28 10:27] VITALS: BP 145/97; PULSE 94; RESP 14; TEMP 36.7; O2SAT 99
--- NOTE | 2023-06-28 10:34 | ED.DENTAL ---
HPI - Dental/Oral General Chief complaint: Dental/Oral Stated complaint: left side tooth pain Time Seen by Provider: 06/28/23 10:40 Source: patient Mode of arrival: ambulatory Limitations: no limitations History of Present Illness HPI Narrative: 42-year-old male presents concern for left lower dental pain and facial swelling. He reports symptoms started yesterday. He denies fever, body aches, chills, sweats. He reports he has a dentist appointment next week. He has been taking ibuprofen MD Complaint: tooth pain Related Data Allergies Allergy/AdvReac Type Severity Reaction Status Date / Time morphine Allergy Intermediate Rash Verified 06/28/23 10:18 Review of Systems Review of Systems: CONSTITUTIONAL: Denies malaise, chills, sweats, or fever. EYES: Denies visual changes ENT: Denies rhinorrhea, congestion, sinus pain, otalgia or sore throat. Reports left lower dental pain and swelling CARDIOVASCULAR: Denies chest pain, palpitations RESPIRATORY: Denies cough or dyspnea. SKIN: Denies rash or itching. MUSCULOSKELETAL: Denies myalgia. NEUROLOGIC: Denies numbness, weakness, or headache. All systems reviewed & are unremarkable except as noted in HPI and below PMFSH Past Medical History Medical History Crohn's disease Diverticulitis Surgical History Surgical History Hx of abdominal surgery Fistula repair Social History Social History Smoking status: Current every day smoker Alcohol intake: current Gender identity (if verbalized by the patient): Male Comments At time of signature, agree with nursing past medical, surgical, social and family history. There is no relevant family history pertinent to the presenting complaint Exam Narrative: GENERAL: Well-appearing, well-nourished, and in no acute distress. HEAD: Normocephalic, atraumatic. EYES: PERRLA, sclera clear ENT: Nares clear, turbinates pink, no rhinorrhea or epistaxis. Mucous membranes moist. Missing teeth, broken teeth, caries, left jaw swelling noted NECK: Supple. No lymphadenopathy. CHEST: No respiratory distress. Speaks in full sentences. HEART: Regular rate and rhythm. SKIN: Warm, dry, no visible rash. NEURO: Alert and oriented x3. PSYCH: Normal mood and affect Course Course Emergency Course: Patient is aware of diagnosis, understands and agrees to treatment plan. Anticipatory guidance given. Patient agrees to follow-up as directed and is aware of reasons to seek care at the emergency department. Portions of this record may have been created with voice recognition software Level of Care: Express Care Visit Vital Signs Vital signs: Vital Signs Temperature 98.1 F 06/28/23 10: Pulse Rate 94 06/28/23 10:27 Respiratory Rate 14 06/28/23 10:27 Blood Pressure 145/97 H 06/28/23 10:27 Pulse Oximetry 99 06/28/23 10:27 Oxygen Delivery Room Air 06/28/23 10:27 Temperature 98.1 F 06/28/23 10:27 Pulse Rate 94 06/28/23 10:27 Respiratory Rate 14 06/28/23 10:27 Blood Pressure 145/97 H 06/28/23 10:27 Pulse Oximetry 99 06/28/23 10:27 Oxygen Delivery Room Air 06/28/23 10:27 Reviewed. MDM - Dental/Oral MDM Narrative Medical decision making narrative: I evaluated this in the [facility]. History is obtained from patient who is an independent historian and physical exam was performed.? Available medical records were reviewed. ? Exam findings and relevant testing show no acute concerns or changes; patient is non-toxic appearing and is in no distress. Patients pain and complaint coupled with physical findings are consistant with dentalgia. There are no focal signs of space occupying lesions that are compromising to the airway; no dysphagia, odynophagia, dysphonia, or dyspnea. No uvular deviation or soft palate edema. Patient is non-
== END 2023-06-28 10:50 | disposition home or self-care (01) ==
PROVIDERS: Emergency Provider Nurse Practitioner
DX: K04.7 Periapical abscess without sinus (principal); K50.90 Crohn's disease, unspecified, without complications; F17.210 Nicotine dependence, cigarettes, uncomplicated
CPT/HCPCS: 99213; G0463

== ENCOUNTER 2023-08-27 16:10 | Emergency (ER) | payer OTHER, SELFPAY ==
--- NOTE | 2023-08-27 16:15 | ED.DENTAL ---
HPI - Dental/Oral General Chief complaint: Dental/Oral Stated complaint: left side face swelling Time Seen by Provider: 08/27/23 16:34 Mode of arrival: ambulatory Limitations: no limitations History of Present Illness HPI Narrative: 43-year-old male presents concern for left lower dental pain, facial swelling with started today. He reports he was tooth in the area that needs to be pulled. He denies fever, headache, trouble swallowing. MD Complaint: tooth pain Related Data Allergies Allergy/AdvReac Type Severity Reaction Status Date / Time morphine Allergy Intermediate Rash Verified 08/27/23 16:24 Review of Systems Review of Systems: CONSTITUTIONAL: Denies malaise, chills, sweats, or fever. EYES: Denies visual changes ENT: Denies rhinorrhea, congestion, sinus pain, otalgia or sore throat. Reports left lower dental pain and facial swelling CARDIOVASCULAR: Denies chest pain, palpitations RESPIRATORY: Denies cough or dyspnea. SKIN: Denies rash or itching. MUSCULOSKELETAL: Denies myalgia. NEUROLOGIC: Denies numbness, weakness, or headache. All systems reviewed & are unremarkable except as noted in HPI and below PMFSH Past Medical History Medical History Crohn's disease Diverticulitis Surgical History Surgical History Hx of abdominal surgery Fistula repair Social History Social History Smoking status: Current every day smoker Alcohol intake: current Gender identity (if verbalized by the patient): Male Comments At time of signature, agree with nursing past medical, surgical, social and family history. There is no relevant family history pertinent to the presenting complaint Exam Narrative: GENERAL: Well-appearing, well-nourished, and in no acute distress. HEAD: Normocephalic, atraumatic. EYES: PERRLA, sclera clear ENT: Nares clear, turbinates pink, no rhinorrhea or epistaxis. Mucous membranes moist. TM pearly desai with sharp light reflex bilaterally; no tragal tenderness. Oropharynx without erythema or lesions. Tonsils not enlarged and without exudate. Broken teeth, caries, left jaw swelling NECK: Supple. No lymphadenopathy. CHEST: No respiratory distress. Speaks in full sentences. HEART: Regular rate and rhythm. SKIN: Warm, dry, no visible rash. NEURO: Alert and oriented x3. PSYCH: Normal mood and affect Course Course Emergency Course: Patient is aware of diagnosis, understands and agrees to treatment plan. Anticipatory guidance given. Patient agrees to follow-up as directed and is aware of reasons to seek care at the emergency department. Portions of this record may have been created with voice recognition software Level of Care: Express Care Visit Vital Signs Vital signs: Reviewed. MDM - Dental/Oral MDM Narrative Medical decision making narrative: I evaluated this in the [facility] care. History is obtained from patient who is an independent historian and physical exam was performed.? Available medical records were reviewed. ? Exam findings and relevant testing show no acute concerns or changes; patient is non-toxic appearing and is in no distress. Patients pain and complaint coupled with physical findings are consistant with dentalgia. There are no focal signs of space occupying lesions that are compromising to the airway; no dysphagia, odynophagia, dysphonia, or dyspnea. No uvular deviation or soft palate edema. Patient is non-toxic appearing. The floor of the mouth is soft with no signs of Art's Angina; no induration below mandible, no neck pain. Patient is without trismus or drooling and able to swallow secretions. Patient is felt appropriate for discharge home with dental follow up. ? Differential diagnosis and treatment plan were discussed with the patient. Patient agrees with discussion and after shared medic
[2023-08-27 16:28] VITALS: BP 129/94; PULSE 86; RESP 16; TEMP 36.7; O2SAT 100
== END 2023-08-27 16:44 | disposition home or self-care (01) ==
PROVIDERS: Emergency Provider Nurse Practitioner
DX: K04.7 Periapical abscess without sinus (principal); F17.200 Nicotine dependence, unspecified, uncomplicated; K50.90 Crohn's disease, unspecified, without complications
CPT/HCPCS: 99213; G0463

== ENCOUNTER 2023-11-03 10:57 | Emergency (ER) | payer OTHER, SELFPAY ==
[2023-11-03 10:59] VITALS: BP 134/86; PULSE 94; RESP 18; TEMP 37.4; O2SAT 100
--- NOTE | 2023-11-03 11:28 | ED.DENTAL ---
HPI - Dental/Oral General Chief complaint: Dental/Oral Stated complaint: Dental Pain Time Seen by Provider: 11/03/23 11:25 Source: patient, RN notes reviewed and old records reviewed Mode of arrival: ambulatory Limitations: no limitations History of Present Illness HPI Narrative: Patient presents with complaints of left-sided facial pain and swelling secondary to a dental infection. He reports that he has had longstanding problems with left lower molar and infection, has been unable to afford proper dental care. He reports that he has an upcoming dental appointment. He denies any fever, chills, sweats. He has been taking ibuprofen for his current symptoms. No drooling or stridor, able to eat and drink without difficulty. No active drainage Related Data Allergies Allergy/AdvReac Type Severity Reaction Status Date / Time morphine Allergy Intermediate Rash Verified 11/03/23 10:58 Review of Systems Review of Systems: All systems reviewed & are unremarkable except as noted in HPI and below Constitutional: Constitutional: Reports no additional constitutional complaints ENT: Reports system reviewed and no additional complaints, except as documented and Reports as per HPI Cardiovascular: Cardiovascular: Reports as per HPI and Reports no additional cardiovascular complaints Respiratory: Respiratory: Reports as per HPI and Reports no additional respiratory complaints Gastrointestinal: Gastrointestinal: Reports no additional gastrointestinal complaints [facility] Past Medical History Medical History Crohn's disease Diverticulitis Surgical History Surgical History Hx of abdominal surgery Fistula repair Social History Social History Smoking status: Current every day smoker Alcohol intake: current Gender identity (if verbalized by the patient): Male Comments At the time of my signature, I reviewed and agree with the nursing past medical, surgical, social, and family history. There is no relevant family history pertinent to the patient complaint. Exam Const: General: cooperative, no acute distress, alert and awake Orientation/consciousness: oriented to person, oriented to place and oriented to time HENMT: Head: normal to inspection Ears: TM's normal bilaterally Face and sinus: face asymmetric and other (Left-sided facial swelling that does not extend to the neck) Mouth: Yes moist mucous membranes and No muffled voice Teeth and gingiva: abnormal tooth and associated gingiva (left lower. ) Resp: Effort & Inspection: normal respiratory effort and able to speak in complete sentences Auscultation: clear to auscultation bilaterally, no crackles, no rales, no rhonchi and no wheezes Cardio: Palpation: normal PMI Rate: regular rate Rhythm: regular rhythm Heart sounds: S1 normal heart sound present and S2 normal heart sound present Neuro: General: oriented to person, oriented to place and oriented to time Cranial nerves: Yes CN's II-XII intact bilaterally Psych: Appearance: grossly normal Thought process: Normal thought process present Insight: Good insight present (Psych) Judgement: Good judgement present (Psych) Course Course Level of Care: Express Care Visit Vital Signs Vital signs: Vital Signs Temperature 99.3 F 11/03/23 10:59 Pulse Rate 94 11/03/23 10:59 Respiratory Rate 18 11/03/23 10:59 Blood Pressure 134/86 11/03/23 10:59 Pulse Oximetry 100 11/03/23 10:59 Oxygen Delivery Room Air 11/03/23 10:59 Temperature 99.3 F 11/03/23 10:59 Pulse Rate 94 11/03/23 10:59 Respiratory Rate 18 11/03/23 10:59 Blood Pressure 134/86 11/03/23 10:59 Pulse Oximetry 100 11/03/23 10:59 Oxygen Delivery Room Air 11/03/23 10:59 Reviewed MDM - Dental/Oral MDM Narrative Medical decision making narrative: Left-sided
== END 2023-11-03 11:50 | disposition home or self-care (01) ==
PROVIDERS: Emergency Provider Nurse Practitioner Family
DX: K04.7 Periapical abscess without sinus (principal); F17.200 Nicotine dependence, unspecified, uncomplicated; K50.90 Crohn's disease, unspecified, without complications
CPT/HCPCS: 99213; G0463